=== PATIENT | female | born 1980 | race Caucasian/White ===

== ENCOUNTER 2022-05-24 07:09 | Emergency (ER) | payer BC, SELFPAY ==
[2022-05-24 07:50] LABS: #Eosinphils 0.1 thou/uL (0.0-0.7); #Lymphocytes 2.5 thou/uL (1.20-3.40); #Monocytes 0.5 thou/uL (0.11-0.59); #Neutrophils 4.4 thou/uL (1.40-6.50); %Basophils 0.4 % (0.0-1.0); %Eosinophils 0.9 % (0.0-10.0); %Lymphocytes 33.2 % (21.0-51.0); %Monocytes 6.6 % (0.0-10.0); %Neutrophils 58.9 % (42.0-75.0); Mean Corpuscular HGB CONC 33.3 g/dL (32.0-36.0); Mean Corpuscular Volume 99.2 fl (78.0-98.0); Mean Platelet Volume 7.2 fL (7.4-10.4); Platelet Count 335 10x3/uL (130-400); RBC Distribution Width 12.4 % (11.5-14.5); Red Blood Cell (RBC) Count 4.23 mill/uL (4.20-5.40); White Blood Cell (WBC) Count 7.4 10x3/uL (4.8-10.8)
[2022-05-24 08:11] LABS: ALT (SGPT) 11 U/L (8-55); AST (SGOT) 13 U/L (5-34); Albumin 4.3 g/dL (3.5-5.0); Alkaline Phosphatase 43 U/L (40-110); Anion Gap 11 mmol/L (10-20); BUN (Urea Nitrogen) 12 mg/dL (7.0-18.7); Calc. Creatinine Clearance 0 mL/min (70-130); Calcium 8.8 mg/dL (7.8-10.44); Carbon Dioxide 25 mmol/L (22-29); Chloride 105 mmol/L (98-107); Estimated GFR 111; Glucose 102 mg/dL (70-105); Potassium 4.2 mmol/L (3.5-5.1); Protein, Total 6.3 g/dL (6.0-8.3); Sodium 137 mmol/L (136-145)
[2022-05-24] MEDS ORDERED: diphenhydrAMINE 50 MG/ML VIAL ONE (09:14)
[2022-05-24] MEDS ORDERED: Ondansetron PF 4 MG/2 ML Vial ONE (09:14)
[2022-05-24] MEDS ORDERED: Ketorolac Tromethamine 30 MG/ML VIAL ONE (09:14)
[2022-05-24] MEDS ORDERED: Metoclopramide HCl 10 MG/2 ML VIAL ONE (09:14)
[2022-05-24] MEDS ORDERED: Meclizine HCl 25 MG TAB ONE (10:52)
[2022-05-24] MEDS ORDERED: Morphine 4 MG/ML VIAL ONE (10:52)
[2022-05-24] MEDS ORDERED: Diazepam 10 MG/2 ML SYRINGE ONE (11:16)
== END 2022-05-24 11:50 | disposition home or self-care (01) ==
LOC: ERS 07:09
DX: H81.13 Benign paroxysmal vertigo, bilateral (principal)
CPT/HCPCS: 36415; 70450; 80053; 84484; 85025; 93005; 96361; 96365; 96366; 96375; J1200; J1885; J2270; J2405; J2765; J3360